=== PATIENT | female | born 1945 | race Caucasian/White ===

== ENCOUNTER → 2023-07-09 15:13 | Outpatient (REF) | payer MEDICARE, OTHER, SELFPAY | LOC: WDC 15:13 | PROVIDERS: ATTENDING PHYSICIAN Family Medicine | DX: Z12.31 Encounter for screening mammogram for malignant neoplasm of breast (principal) | CPT/HCPCS: 77063; 77067 ==

== ENCOUNTER → 2024-02-26 14:11 | Outpatient (REF) | payer MEDICARE, OTHER, SELFPAY | LOC: RAD 14:11 | PROVIDERS: ATTENDING PHYSICIAN Family Medicine | DX: R42 Dizziness and giddiness (principal) | CPT/HCPCS: 70450 ==

== ENCOUNTER → 2024-04-27 13:56 | Outpatient (REF) | payer MEDICARE, OTHER, SELFPAY | LOC: PAVMRI 13:56 | PROVIDERS: ATTENDING PHYSICIAN Family Medicine | DX: R42 Dizziness and giddiness (principal) | CPT/HCPCS: 70544; 70553; A9575 ==

== ENCOUNTER → 2024-07-20 15:55 | Outpatient (REF) | payer MEDICARE, OTHER, SELFPAY | LOC: WDC 15:55 | PROVIDERS: ATTENDING PHYSICIAN Family Medicine | DX: Z12.31 Encounter for screening mammogram for malignant neoplasm of breast (principal) | CPT/HCPCS: 77063; 77067 ==

== ENCOUNTER → 2025-03-29 11:07 | Outpatient (REF) | payer MEDICARE, OTHER, SELFPAY | LOC: RAD 11:07 | PROVIDERS: ATTENDING PHYSICIAN Family Medicine | DX: M81.0 Age-related osteoporosis without current pathological fracture (principal) | CPT/HCPCS: 77080 ==